=== PATIENT | female | born 1980 | race Caucasian/White ===

== ENCOUNTER → 2016-07-24 18:20 | Emergency (ER) | payer MEDICARE, OTHER | END | disposition left against medical advice (07) | LOC: CED 18:20 | DX: Z53.21 Procedure and treatment not carried out due to patient leaving prior to being seen by health care provider (principal) | CPT/HCPCS: J1100; J1885; J2270; J2405 ==

== ENCOUNTER 2016-07-25 18:16 | Emergency (ER) | payer MEDICARE, OTHER | END 2016-07-25 20:37 | disposition short-term general hospital (02) | LOC: CFTX 18:16 | DX: J36 Peritonsillar abscess (principal); F32.9 Major depressive disorder, single episode, unspecified | CPT/HCPCS: 96374; 96375; 99284; 99285; J1100; J1885; J2270; J2405 ==